=== PATIENT | female | born 1995 | race African-American/Black ===

== ENCOUNTER 2022-01-31 03:45 | Emergency (ER) | payer OTHER ==
[~2022-01-31] VITALS: Ht 160 cm; Wt 49.0 kg
[2022-01-31 03:56] VITALS: BP 114/71
== END 2022-01-31 05:40 | disposition left against medical advice (07) ==
LOC: ER 03:45
DX: Z53.21 Procedure and treatment not carried out due to patient leaving prior to being seen by health care provider (principal)